=== PATIENT | male | born 1990 | race Caucasian/White ===

== ENCOUNTER 2018-03-18 16:15 | Emergency (ER) | payer MEDICAID ==
[2018-03-18 16:38] LABS: PLATELET COUNT 499 10^3/uL (150-400)
[2018-03-18] MEDS ORDERED: NS 1,000 ML IV ONE (16:40)
--- NOTE | 2018-03-18 16:48 | EDPHY ---
H & P Stated Complaint: seizure Time Seen by Provider: 03/18/18 16:36 HPI/ROS: CHIEF COMPLAINT: Syncope HISTORY OF PRESENT ILLNESS: The patient is a 27-year-old man who was at [facility] when he fell backwards and hit his head on a little half wall. He was unconscious initially but is now conscious. He denies head or neck pain. He does state that he has a mild headache which is somewhat typical for him. He states that he usually goes away with Tylenol. He has never had seizures. It is unclear whether not there was seizure activity today. He did not bite his tongue and was not incontinent. He tells me that he has not eaten all day today and he is not been drinking much water but he has been smoking marijuana. He denies other ingestions. He denies withdrawal. Severity: Moderate Modifying factors: Standing for prolonged. REVIEW OF SYSTEMS: Constitutional: denies: chills, fever, recent illness, recent injury EENTM: denies: blurred vision, double vision, nose congestion Respiratory: denies: cough, shortness of breath Cardiac: denies: chest pain, irregular heart rate, lightheadedness, palpitations Gastrointestinal/Abdominal: denies: abdominal pain, diarrhea, nausea, vomiting, blood streaked stools Genitourinary: denies: dysuria, frequency, hematuria, pain Musculoskeletal: denies: joint pain, muscle pain Skin: denies: lesions, rash, jaundice, bruising Neurological: See HPI denies: numbness, paresthesia, tingling, dizziness, weakness Hematologic/Lymphatic: denies: blood clots, easy bleeding, easy bruising Immunologic/allergic: denies: HIV/AIDS, transplant 10 systems reviewed and negative except as noted EXAM: GENERAL: Well-appearing, well-nourished and in no acute distress. HEAD: Atraumatic, normocephalic. EYES: Pupils equal round and reactive to light, extraocular movements intact, sclera anicteric, conjunctiva are normal. ENT: TMs normal, nares patent, oropharynx clear without exudates. Moist mucous membranes. NECK: Normal range of motion, supple without lymphadenopathy or JVD. LUNGS: Breath sounds clear to auscultation bilaterally and equal. No wheezes rales or rhonchi. HEART: Regular rate and rhythm without murmurs, rubs or gallops. ABDOMEN: Soft, nontender, normoactive bowel sounds. No guarding, no rebound. No masses appreciated. BACK: No CVA tenderness, no spinal tenderness, step-offs or deformities EXTREMITIES: Normal range of motion, no pitting or edema. No clubbing or cyanosis. NEUROLOGICAL: Cranial nerves II through XII grossly intact. Normal speech, normal gait. 5/5 strength, normal movement in all extremities, normal sensation , normal reflexes PSYCH: Normal mood, normal affect. SKIN: Warm, dry, normal turgor, no visible rashes or lesions. Source: Patient Exam Limitations: No limitations - Personal History Current Tetanus Diphtheria and Acellular Pertussis (TDAP): Unsure - Medical/Surgical History Hx Asthma: No Hx Chronic Respiratory Disease: No Hx Diabetes: No Hx Cardiac Disease: No Hx Renal Disease: No Hx Cirrhosis: No Hx Alcoholism: No Hx HIV/AIDS: No Hx Splenectomy or Spleen Trauma: No Other PMH: migraines, ulcerative colitis - Family History Significant Family History: No pertinent family hx - Social History Smoking Status: Never smoked Alcohol Use: Sober Drug Use: None Constitutional: Initial Vital Signs Temperature (C) 36.6 C 03/18/18 16:35 Heart Rate 106 H 03/18/18 16:35 Respiratory Rate 16 03/18/18 16:35 Blood Pressure 122/78 H 03/18/18 16:35 O2 Sat (%) 95 03/18/18 16:35 O2 Delivery Mode Room Air Medical Decision Making - Diagnostics EKG Interpretation: An EKG obtained and was read and documented in trace view. Please see trace view for full reading and report. Sinus rhythm, no acute ischemic changes Imaging Results: Imaging Impressions Head CT 03/18/18 16:40 Impression: 1. Left temporal lobe subinsular 1.2 cm hypodense nonspecific lesion versus edema. 2. No acute hemorrhage, midline shift, herniation or hydrocephalus. 3.Recommend MRI of the brain without and with contrast enhancement. Findings and recommendations discussed with Emergency Department physician, NIKA GIBBS at 1705 hour, 03/18/2018. Final report concurs with initial preliminary interpretation. Brain MRI 03/18/18 17:10 Impression: 1. No acute infarct, acute hemorrhage, hydrocephalus, or mass effect. 2. Nonenhancing prominent perivascular spaces throughout bilateral cerebral hemispheres which may represent a normal variant or sequela of prior infectious/ inflammatory process. 3. A few hyperintense T2/FLAIR signal abnormalities which are nonspecific, but may be related to mild migraine related sequela. 4. No enhancing lesions or etiology for patient's seizures. Findings and recommendations discussed with emergency department physician, Nika Gibbs MD at 1824 hours on March 18, 2018. Final report concurs with initial preliminary interpretation. Imaging: Discussed imaging studies w/ call center agent Radiologist ED Course/Re-evaluation: 445 p.m. the patient's electrolytes look consistent with someone who had a seizure. According to paramedics he did seem postictal when they arrived. He is now acting normally. Will proceed with CT scanning. 6:[address] scan showed some mild irregularity that we decided to proceed with MRI with and without contrast. This was very reassuring. The patient remains asymptomatic here. We will refer him to Neurology for his migraines and possible seizures. It is impossible to know whether the seizure today happened before after he hit his head. I will not start him on medications at this point. We discussed indications for returning to the ER. Differential Diagnosis: Partial list of the Differential diagnosis considered include but were not limited to; seizure, syncope, migraine and although unlikely based on the history and physical exam, I also considered infection, hemorrhage, cervical spine injury. I discussed these differential diagnoses and the plan with the patient as well as the usual and expected course. The patient understands that the diagnosis is provisional and that in medicine we are not always correct and that further workup is often warranted. Usual and customary warnings were given. All of the patient's questions were answered. The patient was instructed to return to the emergency department should the symptoms at all worsen or return, otherwise to followup with the physician as we discussed. - Data Points Laboratory Results: Laboratory Results 03/18/18 16:15 03/18/18 16:15 03/18/18 03/18/18 16:15 16:15 WBC 10.28 10^3/uL H 10^3/uL (3.80-9.50) RBC 5.14 10^6/uL 10^6/uL (4.40-6.38) Hgb 12.2 g/dL L g/dL (13.7-17.5) Hct 42.1 % % (40.0-51.0) MCV 81.9 fL fL (81.5-99.8) MCH 23.7 pg L pg (27.9-34.1) MCHC 29.0 g/dL L g/dL (32.4-36.7) RDW 17.0 % H % (11.5-15.2) Plt Count 499 10^3/uL H 10^3/uL (150-400) MPV 10.9 fL fL (8.7-11.7) Neut % (Auto) 60.5 % % (39.3-74.2) Lymph % (Auto) 27.4 % % (15.0-45.0) [place] % (Auto) 9.0 % % (4.5-13.0) Eos % (Auto) 1.2 % % (0.6-7.6) Baso % (Auto) 1.0 % % (0.3-1.7) Nucleat RBC Rel Count 0.0 % % (0.0-0.2) Absolute Neuts (auto) 6.22 10^3/uL 10^3/uL (1.70-6.50) Absolute Lymphs (auto) 2.82 10^3/uL 10^3/uL (1.00-3.00) Absolute Monos (auto) 0.93 10^3/uL H 10^3/uL (0.30-0.80) Absolute Eos (auto) 0.12 10^3/uL 10^3/uL (0.03-0.40) Absolute Basos (auto) 0.10 10^3/uL 10^3/uL (0.02-0.10) Absolute Nucleated RBC 0.00 10^3/uL 10^3/uL (0-0.01) Immature Gran % 0.9 % % (0.0-1.1) Immature Gran # 0.09 10^3/uL 10^3/uL (0.00-0.10) Sodium 141 mEq/L mEq/L (135-145) Potassium 4.6 mEq/L mEq/L (3.3-5.0) Chloride 103 mEq/L mEq/L (97-110) Carbon Dioxide 12 mEq/l L mEq/l (22-31) Anion Gap 26 mEq/L H mEq/L (8-16) BUN 11 mg/dL mg/dL (7-23) Creatinine 1.0 mg/dL mg/dL (0.7-1.3) Estimated GFR > 60 Glucose 122 mg/dL H mg/dL (70-100) Calcium 9.9 mg/dL mg/dL (8.5-10.4) Medications Given: Discontinued Medications Acetaminophen (Tylenol) 1,000 mg PO EDNOW ONE Stop: 03/18/18 16:50 Last Admin: 03/18/18 16:53 Dose: 1,000 mg Sodium Chloride (Ns) 1,000 mls @ 0 mls/hr IV ONCE ONE; Wide Open PRN Reason: Protocol Stop: 03/18/18 16:41 Last Admin: 03/18/18 16:49 Dose: 1,000 mls Departure - Departure Disposition: Home, Routine, Self-Care Clinical Impression: Seizure Condition: Fair Instructions: Generalized Tonic Clonic Seizures (ED) Additional Instructions: No driving or swimming or operating heavy machinery until you are cleared by a neurologist. Referrals: Patient,NotPresent [Unknown] - As per Instructions Nika Roth DO [Doctor of Osteopathy] - 5-7 days, call for appt.
[2018-03-18] MEDS ORDERED: ACETAMINOPHEN 500 MG TAB PO ONE (16:49)
--- NOTE | 2018-03-18 17:08 | CPEKG ---
Test Reason : OPEN Blood Pressure : / mmHG Vent. Rate : 091 BPM Atrial Rate : 103 BPM P-R Int : 127 ms QRS Dur : 090 ms QT Int : 358 ms P-R-T Axes : 038 069 019 degrees QTc Int : 441 ms Sinus rhythm Confirmed by Topher Mcguire ([id number]) on 03/18/2018 5:08:01 PM Referred By: Confirmed By:Topher Mcguire
[2018-03-18] MEDS ORDERED: GADOBUTROL 10 ML VIAL IVP ONE (17:33)
[2018-03-18 18:30] VITALS: BP 97/76
== END 2018-03-18 19:40 | disposition home or self-care (01) ==
DX: R55 Syncope and collapse (principal); R56.9 Unspecified convulsions; E86.9 Volume depletion, unspecified; W01.198A Fall on same level from slipping, tripping and stumbling with subsequent striking against other object, initial encounter; Z86.69 Personal history of other diseases of the nervous system and sense organs; Y92.512 Supermarket, store or market as the place of occurrence of the external cause
CPT/HCPCS: A9585